=== PATIENT | male | born 1970 | race African-American/Black ===

== ENCOUNTER 2017-02-21 04:48 | Emergency (ER) | payer OTHER ==
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
[~2017-02-21 04:48] MED LIST: IBUPROFEN PO; MINIPRESS PO; PROPRANOLOL PO; TEMAZEPAM PO; WELLBUTRIN PO; ZOLOFT PO
== END 2017-02-21 08:12 | disposition home or self-care (01) ==
LOC: CED 04:48
DX: S16.1XXA Strain of muscle, fascia and tendon at neck level, initial encounter (principal); S20.219A Contusion of unspecified front wall of thorax, initial encounter; I10 Essential (primary) hypertension; F17.210 Nicotine dependence, cigarettes, uncomplicated; V49.40XA Driver injured in collision with unspecified motor vehicles in traffic accident, initial encounter; Y92.410 Unspecified street and highway as the place of occurrence of the external cause
CPT/HCPCS: 71020; 72040; 99284